=== PATIENT | male | born 1935 | race Caucasian/White ===

== ENCOUNTER → 2016-07-28 | Outpatient (CLI) | payer MEDICARE | END | disposition home or self-care (01) | LOC: GMAL 10:16 | PROVIDERS: ATTEND Family Medicine | DX: N30.00 Acute cystitis without hematuria (principal) ==

== ENCOUNTER → 2017-02-23 | Outpatient (CLI) | payer MEDICARE | END | disposition home or self-care (01) | LOC: GMAL 10:42 | PROVIDERS: ATTEND Family Medicine | DX: D51.3 Other dietary vitamin B12 deficiency anemia (principal); I10 Essential (primary) hypertension; Z12.5 Encounter for screening for malignant neoplasm of prostate; M10.9 Gout, unspecified; E55.9 Vitamin D deficiency, unspecified; D53.9 Nutritional anemia, unspecified | CPT/HCPCS: 82306; 82607; 82652; 82728; 83540; 83550; 84550; G0103 ==

== ENCOUNTER → 2017-03-04 | Outpatient (CLI) | payer MEDICARE ==
--- NOTE | 2017-03-05 22:50 | MRI ---
EXAM DESCRIPTION: Brain w/wo Contrast CLINICAL HISTORY: VERTEBRO-BASILAR ARTERY SYNDROME COMPARISON: None TECHNIQUE: Multiplanar multisequence imaging of the brain including the intravenous administration of contrast. FINDINGS: Scattered foci of increased T2 signal intensity do not exert significant mass effect on surrounding structures and may be sequela of prior insult, most likely on the basis of small vessel disease. There is no evidence of acute mass, mass effect, midline shift or hemorrhage. No focal abnormal extra-axial fluid collection is seen. The ventricles, basal cisterns and extra-axial fluid spaces are normal in size and configuration. Brain parenchymal signal is normal. No abnormal focal enhancement. IMPRESSION: No acute abnormalities. Electronically signed by: Gael Mayorga 03/05/2017 10:49 PM [employer] TECHNICIAN
== END ==
LOC: MRI 13:30
PROVIDERS: ATTEND Family Medicine
DX: G45.0 Vertebro-basilar artery syndrome (principal)

== ENCOUNTER → 2017-10-26 | Outpatient (CLI) | payer MEDICARE | LOC: GMAL 14:22 | PROVIDERS: ATTEND Family Medicine | DX: R53.83 Other fatigue (principal) ==

== ENCOUNTER → 2018-03-02 | Outpatient (CLI) | payer MEDICARE | LOC: GMAL 12:46 | PROVIDERS: ATTEND Family Medicine | DX: D51.3 Other dietary vitamin B12 deficiency anemia (principal); E55.9 Vitamin D deficiency, unspecified; Z12.5 Encounter for screening for malignant neoplasm of prostate | CPT/HCPCS: 82306; 82607; G0103 ==

== ENCOUNTER → 2018-05-13 | Outpatient (CLI) | payer MEDICARE ==
--- NOTE | 2018-05-13 16:35 | MRI ---
EXAM DESCRIPTION: Lumbar Spine w/o Contrast CLINICAL HISTORY: 82 years Male, M54.5 COMPARISON: None available. TECHNIQUE: Multiplanar multiecho imaging of the lumbar spine was performed without intravenous contrast administration. FINDINGS: Straightening of the normal lordotic curvature of the lumbar spine is noted. The vertebral body heights are well-maintained with no acute compression deformity. Multilevel intervertebral disc space narrowing is noted. The conus medullaris terminates at T12-L1 intervertebral disc space. The visualized spinal cord demonstrates no signal abnormality. L1-L2: Mild disc bulge and facet arthropathy with no central canal stenosis. There is mild bilateral neural foraminal narrowing. L2-L3: No central canal stenosis. There is moderate right and moderate to severe left neural foraminal narrowing. L3-L4: No central canal stenosis. There is moderate to severe right and severe left neural foraminal narrowing. L4-L5: No central canal stenosis. There is moderate to severe bilateral neural foraminal narrowing. L5-S1: No central canal stenosis or neural foraminal narrowing. The visualized prevertebral and paravertebral soft tissues appear unremarkable. 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 Electronically signed by: Rona Fields MD 05/13/2018 4:31 PM [employer]
== END ==
LOC: MRI 12:33
PROVIDERS: ATTEND Family Medicine
DX: M51.36 Other intervertebral disc degeneration, lumbar region (principal)

== ENCOUNTER → 2019-03-22 | Outpatient (CLI) | payer MEDICARE | LOC: GMAL 10:32 | PROVIDERS: ATTEND Family Medicine | DX: D51.3 Other dietary vitamin B12 deficiency anemia (principal); R53.83 Other fatigue; E55.9 Vitamin D deficiency, unspecified; I10 Essential (primary) hypertension; E78.49 Other hyperlipidemia ==